=== PATIENT | female | born 1970 | race Caucasian/White ===

== ENCOUNTER → 2019-06-04 | Outpatient (CLI) | payer BC ==
--- NOTE | 2019-06-04 17:14 | REP ---
Bladder ultrasound: Please refer to the renal ultrasound report for the bladder results. Electronically Signed by Shane Ortiz MD 06/04/2019 05:06 P
--- NOTE | 2019-06-04 17:14 | REP ---
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 Left kidney measures 11.1 x 6.7 x 5.0 cm and is normal size. Renal cortical echogenicity is normal. 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 There is hydronephrosis of both upper and lower moieties. There is no left renal solid or cystic mass. There are no calculi. Bladder ultrasound: The pre void bladder volume is 522 ml. The postvoid bladder volume is 24 ml. The postvoid residual is 4.6%. Unable to identify the left ureteral jet with color Doppler ultrasound. There is no bladder wall thickening, the bladder wall thickness is 1.9 mm. The uterus is partially visualized incidentally and appears bulky and heterogeneous. There is a solid uterine mass measuring 6.3 x 6.7 x 6.0 cm, likely a fibroid. Pelvic ultrasound might be considered for further evaluation. Impression: Left kidney: Solitary left kidney. There is no right kidney. Left renal collecting system is duplicated. There is hydronephrosis of both l moieties. No renal calculi are identified. Bladder: Bladder postvoid residual is 4.6%. No bladder masses or polyps are identified. No bladder calculi are identified. Uterine fibroid is suspected incidentally. Pelvic ultrasound might be considered for further evaluation. Electronically Signed by Shane Ortiz MD 06/04/2019 05:05 P
== END ==
LOC: M RAD 15:31
PROVIDERS: ATTEND Nurse Practitioner Women's Health
DX: N13.30 Unspecified hydronephrosis (principal); Z90.5 Acquired absence of kidney

== ENCOUNTER → 2019-07-16 | Outpatient (CLI) | payer BC ==
--- NOTE | 2019-07-16 19:14 | REP ---
CT ABDOMEN AND PELVIS WITHOUT CONTRAST: CT abdomen and pelvis performed without oral or IV contrast. Sagittal and coronal reconstruction images are performed. The visualized lung bases demonstrate no infiltrate. There is a small amount of pericardial fluid or thickening. The liver, spleen, adrenals, pancreas are grossly unremarkable. There is no right kidney present. The left kidney is grossly unremarkable. There is no definite hydronephrosis. No discrete renal stone is seen. Abdominal aorta is normal in caliber. There is no aneurysm. There is no evidence of definite periaortic adenopathy. No free air is seen. Trace free fluid in the pelvis is likely physiologic. No gross bowel wall thickening is seen. Uterus appears enlarged, bulky with lobulated margins and findings are most consistent with a fibroid uterus. There appears to be an exophytic fibroid posteriorly on the left measuring about 4 cm in diameter. I see no other definite pelvic mass. Urinary bladder is not well distended and not well evaluated. There are mild degenerative changes of the spine. IMPRESSION: Mild pericardial fluid/thickening. Enlarged, bulky fibroid uterus. Trace free fluid in the pelvis is likely physiologic. Single kidney on the left. No hydronephrosis, contour abnormality or renal stone. Electronically Signed by Shane Garcia MD 07/16/2019 11:27 P
== END ==
LOC: M RAD 17:08
PROVIDERS: ATTEND Urology
DX: I31.9 Disease of pericardium, unspecified (principal); N13.30 Unspecified hydronephrosis

== ENCOUNTER → 2023-10-24 | Outpatient (CLI) | payer OTHER | LOC: M RAD 09:17 | PROVIDERS: ATTEND Nurse Practitioner Family | DX: N18.32 Chronic kidney disease, stage 3b (principal) ==

== ENCOUNTER → 2024-01-21 | Outpatient (REF) | payer OTHER ==
[2024-01-21 18:18] LABS: CREATININE,RANDOM URINE 165.7 MG/DL
== END ==
LOC: M LAB REF 16:58
PROVIDERS: ATTEND Nurse Practitioner Family
DX: R80.9 Proteinuria, unspecified (principal)

== ENCOUNTER 2024-06-06 22:37 | Emergency (ER) | payer OTHER ==
[~2024-06-06] VITALS: Ht 170.2 cm; Wt 68.9 kg
[2024-06-06 22:40] VITALS: BP 155/83; TEMP 99.7; O2SAT 98
[2024-06-06 23:27] LABS: KETONE, URINE AUTO RFX NEGATIVE (NEGATIVE); LEUKOCYTE ESTERASE UR AUTO RFX 3+ (NEGATIVE); NITRITE, URINE AUTO RFX NEGATIVE (NEGATIVE); RBC, URINE AUTO RFX TNTC /HPF (0-3); SQUAM EPITHELIAL CELL UR AURFX 0 /HPF (0-6); WBC, URINE AUTO RFX TNTC /HPF (0-3)
[2024-06-07] MEDS ORDERED: SULF400T14 PO (00:22)
[2024-06-07] MEDS: BACTRIM 80MG/400MG TAB PO ONE (00:45)
[2024-06-07] MEDS ORDERED: BACTRIM 80MG/400MG TAB PO SCH (09:00)
== END 2024-06-07 00:50 | disposition home or self-care (01) ==
LOC: EEVIPCON 22:37 → M ED 22:37
DX: N39.0 Urinary tract infection, site not specified (principal); Z79.2 Long term (current) use of antibiotics